=== PATIENT | female | born 1960 | race Caucasian/White ===

== ENCOUNTER 2019-05-28 15:12 | Emergency (ER) | payer BC ==
[~2019-05-28] VITALS: Ht 165.1 cm; Wt 56.7 kg
[2019-05-28 16:03] VITALS: BP 136/47
--- NOTE | 2019-05-28 16:06 | NUR ---
ARRIVAL PT ARRIVED TO ER VIA WHEELCHAIR ACCOMPANIED BY SPOUSE. PT STATES THAT SHE WAS GOING DOWN STEPS 3 WEEKS AGO AND FELL. SINCE SHE HAS HAD SWELLING AND SIGNIFICANT PAIN. DR VIVEROS AT BEDSIDE. BEDSIDE MONITORS APPLIED. VITAL SIGNS STABLE. CALL LIGHT WITHIN REACH.
--- NOTE | 2019-05-28 16:12 | ER.PDOC ---
General Chief Complaint: Extremities Stated Complaint: FOOT PAIN Time seen by MD: 16:00 Source: patient Exam Limitations: no limitations History of Present Illness Onset: last week Where: home Severity: moderate Context: twist Associated Symptoms: swelling, popping sensation Modifying Factors: pain on movement Past Medical History Medical History: GERD LMP (females 10-50): postmenopause Social History Smoking: non-smoker Alcohol Use: none Drug Use: none Reviewed Nursing Reviewed: Vital Signs, Abn. Noted Review of Systems All Other Systems: Reviewed and Negative Physical Exam General Appearance: Alert, No Apparent Distress Foot: tenderness, swelling 1 - TENDER, EDEMA Ankle: nml inspection Gait: antalgic gait Vascular: no vascular compromise Tendons: tendon function nml Leg/Knee/Thigh: uninjured above ankle Skin: warm/dry Head/ENT: nml inspection, pharynx nml Neck/Back: nml inspection, non-tender Resp/CVS: no resp distress Abdomen: non-tender, no organomegaly Results/Orders Results/Orders Orders - KRISTIAN VIVEROS MD Xr Foot Lt (05/28/19 16:09) Vital Signs Date Time Temp Pulse Resp B/P (MAP) Pulse Ox O2 Delivery O2 Flow Rate FiO2 05/28/19 16:03 97.9 73 16 136/47 (76) 99 Room Air 97.9 05/28/19 15:54 97.9 73 16 97.9 05/28/19 15:54 97.9 73 16 99 Room Air 97.9 Departure Time of Disposition: 16:44 Disposition: 01 HOME, SELF-CARE Impression: Primary Impression: Foot contusion Condition: Stable Referrals: PCP,UNKNOWN (PCP) PRIMARY CARE PROVIDER Duration or Time Spent with Pa: 15 MIN KRISTIAN VIVEROS MD May 28, 2019 16:12
--- NOTE | 2019-05-28 16:24 | DIREP ---
PROCEDURE:XRAY FOOT MIN 3 VWS-LT COMPARISON:None. INDICATIONS:TWISTING INJURY FINDINGS: BONES:No acute fracture. JOINTS:Hallux valgus and bunion and hammertoe deformities. SOFT TISSUES:Normal. OTHER:No additional findings. CONCLUSION:No acute bony abnormality. Dictated by: Annmarie Kauffman MD on 05/28/2019 at 04:23 PM
[2019-05-28 17:07] VITALS: BP 121/68
== END 2019-05-28 17:19 | disposition home or self-care (01) ==
LOC: ER 15:12
DX: S90.32XA Contusion of left foot, initial encounter (principal); K21.9 Gastro-esophageal reflux disease without esophagitis; X50.1XXA Overexertion from prolonged static or awkward postures, initial encounter; Y93.89 Activity, other specified; Y92.098 Other place in other non-institutional residence as the place of occurrence of the external cause; Y99.8 Other external cause status
CPT/HCPCS: 99283; 73630-LT